=== PATIENT | female | born 1970 | race Two or more races ===

== ENCOUNTER 2016-07-18 08:05 | Emergency (ER) | payer SELFPAY ==
[~2016-07-18] VITALS: Ht 175.3 cm; Wt 68.9 kg
[2016-07-18 08:52] VITALS: BP 96/74
== END 2016-07-18 09:36 | disposition home or self-care (01) ==
LOC: ER 08:07
DX: J32.9 Chronic sinusitis, unspecified (principal); J06.9 Acute upper respiratory infection, unspecified; F17.200 Nicotine dependence, unspecified, uncomplicated; Z88.1 Allergy status to other antibiotic agents
CPT/HCPCS: A4606; Z7502; Z7610

== ENCOUNTER 2016-08-29 16:48 | Emergency (ER) | payer SELFPAY ==
[~2016-08-29] VITALS: Ht 175.3 cm; Wt 66.2 kg
[2016-08-29 17:31] VITALS: BP 112/65
== END 2016-08-29 17:33 | disposition home or self-care (01) ==
LOC: ER 16:49
DX: K14.0 Glossitis (principal); Z88.0 Allergy status to penicillin; F17.200 Nicotine dependence, unspecified, uncomplicated
CPT/HCPCS: 99281; A4606; Z7610; Z7502

== ENCOUNTER 2017-10-27 14:14 | Emergency (ER) | payer OTHER ==
[~2017-10-27] VITALS: Ht 177.8 cm; Wt 72.1 kg
[2017-10-27 14:30] VITALS: BP 100/65
== END 2017-10-27 16:37 | disposition home or self-care (01) ==
LOC: ER 14:15
DX: J40 Bronchitis, not specified as acute or chronic (principal); F17.200 Nicotine dependence, unspecified, uncomplicated; Z60.2 Problems related to living alone; Z88.1 Allergy status to other antibiotic agents
CPT/HCPCS: 71045-TC; 86403-TC; 87070-TC; A4606; Z7610

== ENCOUNTER 2019-08-29 10:54 | Emergency (ER) | payer OTHER ==
[~2019-08-29] VITALS: Ht 175.3 cm; Wt 76.7 kg
--- NOTE | 2019-08-29 11:00 | NUR ---
PT BIBA 839 From Home "low Back pain. Non traumatic- cant walk from pain" PT IS AAOX4, NOT IN RESPIRATORY DISTRESS, V/S STABLE, KEPT RESTED AND COMFORTABLE, WILL CONTINUE TO MONITOR.
--- NOTE | 2019-08-29 11:07 | NUR ---
AT BEDSIDE FOR EVAL.
[2019-08-29] MEDS ORDERED: KETOROLAC TROMETHAMINE INJ 30 MG/ML VIAL ONE (11:19)
--- NOTE | 2019-08-29 11:20 | NUR ---
PT SIGNED WAIVER STATING THE SHE IS NOT .
[2019-08-29] MEDS ORDERED: KETOROLAC TROMETHAMINE INJ 60 MG/2 ML VIAL IM ONE (11:30)
--- NOTE | 2019-08-29 12:12 | NUR ---
PT IS WHEELED TO CT SCAN VIA [facility].
[2019-08-29] MEDS ORDERED: CARISOPRODOL 350 MG TABLET ONE (13:23)
[2019-08-29] MEDS ORDERED: HYDROCODONE/APAP 5/325MG 1 EACH TABLET ONE (13:23)
[2019-08-29] MEDS ORDERED: CARISOPRODOL 350 MG TABLET PO ONE (13:30)
[2019-08-29] MEDS ORDERED: HYDROCODONE/APAP 5/325MG 1 EACH TABLET PO ONE (13:30)
[2019-08-29] MEDS ORDERED: ONDANSETRON 4 MG TAB.RAPDIS ONE (13:48)
[2019-08-29] MEDS ORDERED: HYDROMORPHONE 1 MG/1 ML DISP.SYRIN ONE (13:48)
--- NOTE | 2019-08-29 13:50 | NUR ---
PER PT SHE IS STILL UNABLE TO WALK AND SIT BECAUSE OF THE PAIN. ER MD AWARE. PAIN MEDS GIVEN ORDERED.
[2019-08-29] MEDS ORDERED: HYDROMORPHONE 1 MG/1 ML DISP.SYRIN IM ONE (14:00)
[2019-08-29] MEDS ORDERED: ONDANSETRON 4 MG TAB.RAPDIS SL ONE (14:00)
[2019-08-29 15:47] VITALS: BP 116/66
--- NOTE | 2019-08-29 15:47 | NUR ---
Patient discharged to home in stable condition. Written and verbal after care instructions given. Patient verbalizes understanding of instruction.
== END 2019-08-29 15:47 | disposition home or self-care (01) ==
LOC: ER 10:59
DX: M54.5 Low back pain (principal); F17.200 Nicotine dependence, unspecified, uncomplicated; Z88.1 Allergy status to other antibiotic agents; Z60.2 Problems related to living alone
CPT/HCPCS: 72131; 96372 ×2; 99284; J1170; J1885; Q0162

== ENCOUNTER 2020-02-22 16:58 | Emergency (ER) | payer OTHER ==
[~2020-02-22] VITALS: Ht 175.3 cm; Wt 69.9 kg
--- NOTE | 2020-02-22 17:05 | NUR ---
bib self c/o abd pain with cramping x4 days reports being nauseous and having diarrhea this am. vs checked. dr. card by bedside.
--- NOTE | 2020-02-22 17:18 | NUR ---
shift production associate by bedside doing blood draw
[2020-02-22 17:26] LABS: BASOPHILS % (AUTO) 0.4 % (0.0-2.0); EOSINOPHILS % (AUTO) 2.8 % (0.0-6.0); HEMATOCRIT 42 % (33-45); HEMOGLOBIN 14.3 g/dL (11.5-14.8); LYMPHOCYTES # (AUTO) 1.8 /CMM (0.8-4.8); MEAN CORPUSCULAR HGB CONC 34 g/dl (31.0-36.0); MEAN CORPUSCULAR VOLUME 92 fL (82-100); MONOCYTES # (AUTO) 0.9 /CMM (0.1-1.30); MONOCYTES % (AUTO) 13.1 % (2.0-12.0); NEUTROPHILS # (AUTO) 4.1 /CMM (1.8-8.9); NEUTROPHILS % (AUTO) 57.7 % (43.0-81.0); PLATELET COUNT (AUTO) 278 /CMM (150-450); RED BLOOD CELL COUNT(AUTO) 4.56 MIL/uL (4.0-5.2)
[2020-02-22 17:36] LABS: CALCIUM, SERUM 9.4 mg/dL (8.5-10.1); CREATININE 0.6 mg/dL (0.6-1.3); POTASSIUM 3.7 mmol/L (3.5-5.1)
[2020-02-22 17:41] LABS: ALBUMIN 3.6 g/dL (3.4-5.0); BILIRUBIN,DIRECT 0.1 mg/dL (0.0-0.2); BILIRUBIN,TOTAL 0.2 mg/dL (0.2-1.0); TOTAL PROTEIN, SERUM 7.8 g/dL (6.4-8.2)
[2020-02-22 18:01] LABS: BILIRUBIN,URINE Negative (NEGATIVE); BLOOD, URINE Trace-intact Ery/uL (NEGATIVE); COLOR,URINE YELLOW (YELLOW); LEUKOCYTE ESTERASE ,URINE Negative (NEGATIVE); NITRITE, URINE Negative (NEGATIVE); PROTEIN,URINE Negative (NEGATIVE); UGLUCOSE Negative (NEGATIVE); UROBILINOGEN,URINE 0.2 EU/dL (0.2)
--- NOTE | 2020-02-22 18:24 | NUR ---
Patient discharged to home in stable condition. Written and verbal after care instructions given. Patient verbalizes understanding of instruction.
[2020-02-22 18:26] VITALS: BP 109/71
[2020-02-22 18:36] LABS: BACTERIA,URINE Few /HPF (None Seen); SQUAMOUS EPITHELIAL CELL,UR Few /HPF (None Seen); WBC,URINE 0-2 /HPF (0-3)
== END 2020-02-22 18:26 | disposition home or self-care (01) ==
LOC: ER 17:01
DX: R10.9 Unspecified abdominal pain (principal); R11.0 Nausea; M54.9 Dorsalgia, unspecified; Z88.1 Allergy status to other antibiotic agents; Z60.2 Problems related to living alone
CPT/HCPCS: 36415; 80048-TC; 80076-TC; 81001; 83690-TC; 84703-TC; 85025-TC

== ENCOUNTER 2021-07-25 18:56 | Emergency (ER) | payer OTHER ==
[~2021-07-25] VITALS: Ht 175.3 cm; Wt 68.9 kg
[2021-07-25 19:06] VITALS: BP 107/76
--- NOTE | 2021-07-25 19:06 | NUR ---
BIB SELF C/O R ARM PAIN SHARP LIKE PER PT. DENIES ANY INJURY. PT A/OX4. TOLERATING R/A WELL WITH NO SOB
--- NOTE | 2021-07-25 20:01 | NUR ---
PT SEEN BY ARMORED TRUCK DRIVER
--- NOTE | 2021-07-25 20:55 | NUR ---
Patient discharged to home in stable condition. Written and verbal after care instructions given. Patient verbalizes understanding of instruction.
== END 2021-07-25 21:07 | disposition home or self-care (01) ==
LOC: ER 18:56
DX: M25.531 Pain in right wrist (principal); F17.200 Nicotine dependence, unspecified, uncomplicated; Z87.39 Personal history of other diseases of the musculoskeletal system and connective tissue; Z88.0 Allergy status to penicillin; Z60.2 Problems related to living alone
CPT/HCPCS: 73110